=== PATIENT | male | born 1950 | race Caucasian/White ===

== ENCOUNTER 2020-11-06 13:09 | Outpatient (RCR) | payer MEDICARE, OTHER, SELFPAY ==
[2020-07-17 14:07] VITALS: BMI 24.3
== END 2020-11-06 23:59 ==
LOC: IMMUN 13:09
PROVIDERS: PCP Family Medicine; Referring Provider Family Medicine; Visit Provider Family Medicine
DX: Z23 Encounter for immunization (principal)
CPT/HCPCS: 0011A; 0012A